=== PATIENT | male | born 1975 | race Hispanic/Latino ===

== ENCOUNTER 2018-02-23 18:38 | Emergency (ER) | payer OTHER ==
[~2018-02-23] VITALS: Ht 180.3 cm; Wt 84.4 kg
[2018-02-23] MEDS ORDERED: SODIUM CHLORIDE 0.9% 1000ML 1,000 ML IV STA (18:59)
[2018-02-23 19:16] LABS: BASOPHILS % 0.3 % (0.0-1.0); EOSINOPHILS # (AUTO) 0.1 (0.0-0.4); EOSINOPHILS % 0.7 % (0.0-6.0); HEMATOCRIT 41.8 % (38.2-49.6); HEMOGLOBIN 14.7 g/dL (14.0-18.0); MEAN CORPUSCULAR HEMOGLOBIN 29.9 pg (28-32); MEAN CORPUSCULAR HGB CONC 35.2 g/dL (31-35); MEAN CORPUSCULAR VOLUME 85.1 fL (81-99); MONOCYTES # (AUTO) 0.3 (0.2-0.8); MONOCYTES % 3.8 % (4.4-11.3); NEUTROPHILS # (AUTO) 5.8 (2.1-6.9); NEUTROPHILS % 80.9 % (38.7-80.0); PLATELET COUNT 175 x10e3/uL (140-360); RED BLOOD COUNT 4.91 x10e6/uL (4.3-5.7); RED CELL DISTRIBUTION WIDTH 13.1 % (11.7-14.4)
[2018-02-23 19:17] LABS: COLOR,URINE YELLOW (YELLOW); KETONES,URINE NEGATIVE (NEGATIVE); LEUKOCYTE ESTERASE ,URINE NEGATIVE (NEGATIVE); NITRITE,URINE NEGATIVE (NEGATIVE); PROTEIN,URINE DIPSTICK NEGATIVE (NEGATIVE)
[2018-02-23 19:18] LABS: BILIRUBIN,URINE NEGATIVE (NEGATIVE); CLARITY,URINE SL CLOUDY (CLEAR); URINE UROBILINOGEN 0.2 mg/dL (0.2 - 1)
[2018-02-23 19:29] LABS: BACTERIA,URINE FEW /HPF; EPITHELIAL CELLS,URINE MODERATE /LPF; WBC,URINE (MAN) 0-5 /HPF (0-5)
[2018-02-23 19:36] LABS: ALANINE AMINOTRANSFERASE 35 IU/L (0-55); ALBUMIN/GLOBULIN RATIO 1.1 (0.8-2.0); ALKALINE PHOSPHATASE 95 IU/L (40-150); AMYLASE 38 U/L (25-125); ANION GAP 14.2 mmol/L (8-16); BLOOD UREA NITROGEN 13 mg/dL (7-26); BUN/CREATININE RATIO 14 (6-25); CALCIUM 9.8 mg/dL (8.4-10.2); CARBON DIOXIDE 29 mmol/L (22-29); CHLORIDE 102 mmol/L (98-107); CREATINE KINASE 204 IU/L (30-200); CREATININE, SERUM 0.93 mg/dL (0.72-1.25); EST GLOMERULAR FILTRATION RATE > 60 ML/MIN (60-); GLUCOSE 165 mg/dL (74-118); LIPASE 13 U/L (8-78); MAGNESIUM 2.3 MG/DL (1.3-2.1); POTASSIUM 4.2 mmol/L (3.5-5.1); SODIUM 141 mmol/L (136-145)
[2018-02-23 19:55] LABS: THYROID STIMULATING HORMONE 0.171 uIU/mL (0.350-4.940)
--- NOTE | 2018-02-23 20:10 | Diagnostic Imaging Report ---
EXAMINATION: CHEST SINGLE (PORTABLE) COMPARISON: None INDICATION: Dizziness and weakness, vomiting DISCUSSION: Frontal view of the chest obtained at 1923 hours. HEART AND MEDIASTINUM: The cardiomediastinal silhouette is unremarkable. LINES: None. LUNGS: The lungs are well inflated and clear. No pneumonia or pulmonary edema. PLEURA: No pleural effusion or pneumothorax. BONES AND SOFT TISSUES: No focal osseous lesion. The soft tissues are normal. IMPRESSION: No acute cardiopulmonary disease. Signed by: Dr. Pj Mathias MD on 02/23/2018 8:07 PM
--- NOTE | 2018-02-23 21:43 | Diagnostic Imaging Report ---
EXAM: CT ABDOMEN AND PELVIS without IV CONTRAST INDICATION: Hematuria, dizziness, weakness COMPARISON: None TECHNIQUE: The abdomen and pelvis were scanned using a multidetector helical scanner. Coronal and sagittal reformations were obtained. Renal stone protocol performed. IV Contrast: None Oral Contrast: None CTDIvol has been reviewed. It is below the limits set by the Radiation Protocol Committee (RPC). FINDINGS: LOWER THORAX: No consolidations LIVER: No masses BILIARY: Normal gallbladder. No ductal dilation. SPLEEN: No masses PANCREAS: No masses ADRENALS: No nodules RIGHT KIDNEY: No nephroureterolithiasis or hydronephrosis. LEFT KIDNEY: No nephroureterolithiasis or hydronephrosis. Simple cyst measuring 1.5 cm posterior lateral aspect of the left kidney interpolar region. GI TRACT: No wall thickening or obstruction. Normal appendix. VESSELS: Unremarkable PERITONEUM/RETROPERITONEUM: No free air or fluid LYMPH NODES: No lymphadenopathy REPRODUCTIVE ORGANS: Normal BLADDER: Normal SOFT TISSUES: Normal BONES: No suspicious bone lesions. IMPRESSION: Normal CT of the abdomen and pelvis. No nephroureterolithiasis. Signed by: Dr. Aleyda Lerma M.D. on 02/23/2018 9:40 PM
[2018-02-23 22:29] VITALS: BP 137/88
[2018-02-23] MEDS ORDERED: ZOFRAN ODT4 MG SL (22:29)
== END 2018-02-23 22:35 | disposition home or self-care (01) ==
LOC: ER 18:38
DX: R51 Headache (principal); R53.1 Weakness; R11.2 Nausea with vomiting, unspecified; R31.9 Hematuria, unspecified; K21.9 Gastro-esophageal reflux disease without esophagitis; E07.9 Disorder of thyroid, unspecified
CPT/HCPCS: 36415; 71045; 74176; 80053; 81001; 82150; 82550; 82553; 83605; 83690; 83735; 83880; 84443; 84484; 85025; 93005; 99284; J7030

== ENCOUNTER 2018-12-31 14:25 | Emergency (ER) | payer OTHER ==
[~2018-12-31] VITALS: Ht 180.3 cm; Wt 84.4 kg
[~2018-12-31 14:25] MED LIST: ZOFRAN ODT4 MG SL
--- OUTSIDE RECORDS SUMMARY | 2018-12-31 14:27 | XMS REPORT | CCD ---
Author Author Auto Generated Organization [facility] Address Unknown Phone Unavailable Care Team Providers Care Automatic Drill Operator Name Role Phone Yonis Kirkpatrick RP Results IMMUNOLOGY Most recent to oldest [Reference Range]: 1 Quantiferon - TB Gold [NEGATIVE] NEGATIVE 1 *NA* (06/19/2013 08:25:00) NIL 0.10 IU/mL *NA* (06/19/2013 08:25:00) Mitogen - NIL 7.85 IU/mL *NA* (06/19/2013 08:25:00) TB - NIL 0.08 IU/mL 2 *NA* (06/19/2013 08:25:00) 1Result Comment: Negative test result. M. tuberculosis complex infection unlikely. 2Result Comment: The Nil tube value is used to determine if the patient has a preexisting immune response which could cause a false-positive reading on the test. In order for a test to be valid, the Nil tube must have a value of less than or equal to 8.0 IU/mL. The mitogen control tube is used to assure the patient has a healthy immune status and also serves as a control for correct blood handling and incubation. It is used to detect false-negative readings. The mitogen tube must have a gamma interferon value of greater than or equal to 0.5 IU/mL higher than the value of the Nil tube. The TB antigen tube is coated with the M. tuberculosis specific antigens. For a test to be considered positive, the TB antigen tube value minus the Nil tube value must be greater than or equal to 0.35 IU/mL. For additional information, please refer to http://education.[employer]/faq/QFT (This link is being provided for informational/ educational purposes only.) Test Performed at: [facility] [address] [address] MARINA MILAN M.D.
--- OUTSIDE RECORDS SUMMARY | 2018-12-31 14:27 | XMS REPORT | CCD ---
Author Author Auto Generated Organization [facility] Address Unknown Phone Unavailable Care Team Providers Care Kitchen Help Handyman Name Role Phone Yonis Kirkpatrick RP Results [...] IU/mL. For additional information, please refer to http://education.GigPark/faq/QFT (This link is being provided for informational/ educational purposes only.) Test Performed at: [facility] [address] [address] MARINA MILAN M.D.
--- OUTSIDE RECORDS SUMMARY | 2018-12-31 14:27 | XMS REPORT | CCD ---
Author Author Auto Generated Organization [facility] Address Unknown Phone Unavailable Care Team Providers Care Entry Level Installation Technician Name Role Phone Yonis Kirkpatrick RP Results [...] IU/mL. For additional information, please refer to http://education.[employer]/faq/QFT (This link is being provided for informational/ educational purposes only.) Test Performed at: [facility] [address] [address] MARINA MILAN M.D.
--- OUTSIDE RECORDS SUMMARY | 2018-12-31 14:27 | XMS REPORT | CCD ---
Author Author Auto Generated Organization [facility] Address Unknown Phone Unavailable Care Team Providers Care Extraction Supervisor Name Role Phone Yonis Kirkpatrick RP Results [...] IU/mL. For additional information, please refer to http://education.Polwire/faq/QFT (This link is being provided for informational/ educational purposes only.) Test Performed at: [facility] [address] [address] MARINA MILAN M.D.
--- OUTSIDE RECORDS SUMMARY | 2018-12-31 14:27 | XMS REPORT ---
Author Author [facility] Address Unknown Phone Unavailable Care Team Providers Care Lbd Teacher Name Role Phone Tiera LOPEZ Unavailable Unavailable Problems This patient has no known problems. Allergies, Adverse Reactions, Alerts This patient has no known allergies or adverse reactions. Medications This patient has no known medications. Results Test Description Test Time Test Comments Text Results Atomic Results Result Comments CT ABDOMEN/PELVIS WO 2018-02-23 21:36:00 [place] [address] Patient Name: ISABELLA SORIA MR #: [id number] : 1975 Age/Sex: 43/M Req #: [id number] Adm Physician: Ordered by: WENDY VALDOVINOS WORLD HISTORY TEACHER Report #: [id number] Location: ER Room/Bed: Procedure: [id number] CT/CT ABDOMEN/PELVIS WO Exam Date: 02/23/18 Exam Time: 2121 REPORT STATUS: Signed ADDENDUM #1 Dose modulation, iterative reconstruction, and/or weight based adjustment of the mA/kV was utilized to reduce the radiation dose to as low as reasonably achievable. Signed by: Dr. Caleb Lerma M.D. on 04/18/2018 4:53 AM ORIGINAL REPORT EXAM: CT ABDOMEN AND PELVIS without IV CONTRAST INDICATION: Hematuria, dizziness, weakness COMPARISON: None TECHNIQUE: The abdomen and pelvis were scanned using a multidetector helical scanner. Coronal and sagittal reformations were obtained. Renal stone protocol performed. IV Contrast: None Oral Contrast: None CTDIvol has been reviewed. It is below the limits set by the Radiation Protocol Committee (RPC). FINDINGS: LOWER THORAX: No consolidations LIVER: No masses BILIARY: Normal gallbladder. No ductal dilation. SPLEEN: No masses PANCREAS: No masses ADRENALS: No nodules RIGHT KIDNEY: No nephroureterolithiasis or hydronephrosis. LEFT KIDNEY: No nephroureterol ithiasis or hydronephrosis. Simple cyst measuring 1.5 cm posterior lateral aspect of the left kidney interpolar region. GI TRACT: No wall thickening or obstruction. Normal appendix. VESSELS: Unremarkable PERITONEUM/RETROPERITONEUM: No free air or fluid LYMPH NODES: No lymphadenopathy REPRODUCTIVE ORGANS: Normal BLADDER: Normal SOFT TISSUES: Normal BONES: No suspicious bone lesions. IMPRESSION: Normal CT of the abdomen and pelvis. No nephroureterolithiasis. Signed by: Dr. Caleb Lerma M.D. on 02/23/2018 9:40 PM Dictated By: CALEB Orellana MD [id number] Transcribed By: ELAINE on 02/23/18 2146 COPY TO: WENDY VALDOVINOS NP CHEST SINGLE (PORTABLE) 2018-02-23 20:07:00 [place] [address] Patient Name: ISABELLA SORIA MR #: [id number] : 1975 Age/Sex: 43/M Req #: [id number] Adm Physician: Ordered by: WENDY VALDOVINOS NP Report #: [id number] Location: ER Room/Bed: Procedure: [id number] DX/CHEST SINGLE (PORTABLE) Exam Date: 02/23/18 Exam Time: 1919 REPORT STATUS: Signed EXAMINATION: CHEST SINGLE (PORTABLE) COMPARISON: None INDICATION: Dizziness and weakness, vomiting DISCUSSION: Frontal view of the chest obtained at 1923 hours. HEART AND MEDIASTINUM: The cardiomediastinal silhouette is unremarkable. LINES: None. LUNGS: The lungs are well inflated and clear. No pneumonia or pulmonary edema. PLEURA: No pleural effusion or pneumothorax. BONES AND SOFT TISSUES: No focal osseous lesion. The soft tissues are normal. IMPRESSION: No acute cardiopulmonary disease. Signed by: Dr. Pj Mathias MD on 02/23/2018 8:07 PM Dictated By: PJ MATHIAS MD 06 Transcribed By: ELAINE on 02/23/182006 COPY TO: WENDY VALDOVINOS NP
--- OUTSIDE RECORDS SUMMARY | 2018-12-31 14:27 | XMS REPORT | CCD ---
Author Author Auto Generated Organization [facility] Address Unknown Phone Unavailable Care Team Providers Care Agricultural Commodities Grader Name Role Phone Yonis Kirkpatrick RP Results [...] IU/mL. For additional information, please refer to http://education.G[employer]/faq/QFT (This link is being provided for informational/ educational purposes only.) Test Performed at: [facility] [address] [address] MARINA MILAN M.D.
--- OUTSIDE RECORDS SUMMARY | 2018-12-31 14:27 | XMS REPORT | Continuity of Care Document ---
Author Author [facility] Address Unknown Phone Unavailable Problems Problem Status Onset Date Classification Date Reported Comments Source 786.6, CHEST MASS Active 06/07/2013 [facility] Medications Medication Details Route Status Patient Instructions Ordering Provider Order Date Source Allergies, Adverse Reactions, Alerts Substance Category Reaction Severity Reaction type Status Date Reported Comments Source Immunizations Immunization Date Given Site Status Last Updated Comments Source Results Order Name Results Value Reference Range Date Interpretation Comments Source Stomach UGI (barium) Stomach UGI (barium) UPPER GI EXAM CLINICAL HISTORY: Gastritis. TECHNIQUE: Double contrast exam with barium and air. FLUOROSCOPY TIME: 10 seconds. FINDINGS: Precontrast KUB demonstrates no significant abnormality. Contrast images of the upper GI tract show no esophageal mucosal abnormality or gastroesophageal reflux. There is a tiny sliding-type hiatal hernia. Moderate rugal fold thickening is seen in the fundus and antrum of the stomach, consistent with the provided clinical history of gastritis. There is no evidence of peptic ulcer disease. Opacified small bowel is unremarkable. IMPRESSION: Gastric mucosal thickening consistent with the provided diagnosis of gastritis. Tiny sliding-type hiatal hernia without evidence of gastroesophageal reflux. 09/24/2013 - - Read by: Osvaldo Quesada Dictated Date/time: 09/24/13 09:40 Electronically Signed by: Osvaldo Quesada MD 09/24/13 09:42 FINAL REPORT ALYSHA Cortez Chest wo contrast CT Chest wo contrast CT CT chest without contrast. INDICATION: Chest mass. TECHNIQUE: Contiguous axial CT images of the chest without intravenous contrast. DLP 587.69. COMPARISON: Several prior chest CTs. FINDINGS: Unremarkable heart and thoracic aorta. No pathologic sized middle mediastinal adenopathy, though limited by lack of intravenous contrast. Calcified granulomas subcarinal region. Unremarkable tracheobronchial tree. No pneumothorax, lobar consolidation, or pleural effusion. Resolved lingular infiltrate. Unremarkable osseous structures. IMPRESSION: No acute process in the chest. 06/28/2013 - - Read by: Lance Marie Dictated Date/time: 06/29/13 16:51 Electronically Signed by: Lance Marie MD 06/29/13 16:56 FINAL REPORT MANUEL Cortez IMMUNOLOGY TB - NIL 0.08 [iU]/mL 06/19/2013 2Result Comment: The Nil tube value is [...] IU/mL. For additional information, please refer to http://education.Earnest/faq/QFT (This link is being provided for informational/ educational purposes only.) Test Performed at: [facility] [address] [address] MARINA MILAN M.D. [facility] Mitogen - NIL 7.85 [iU]/mL 06/19/2013 [facility] NIL 0.10 [iU]/mL 06/19/2013 [facility] Quantiferon - TB Gold NEGATIVE NEGATIVE 06/19/2013 1Result Comment: Negative test result. M. tuberculosis complex infection unlikely. [facility] Chest wo contrast CT Chest wo contrast CT CT chest without contrast: COMPARISON: 04/11/2013 TECHNIQUE: Contiguous transaxial images of the chest were performed without IV contrast from the lung apices to the diaphragms. FINDINGS: Nodular infiltrate in the lingula has essentially resolved in the interim. There is minimal residual nodular opacity in the lingula, at left lung base anteriorly. The lungs and pleural spaces are otherwise clear. The trachea and the proximal bronchi are patent. The cardiac size is normal. The evaluation of the mediastinum and hilar regions is curtailed due to lack of IV contrast but no gross mass or lymphadenopathy is evident. Calcified lymph nodes are visualized in the subcarinal region. The esophagus demonstrates normal morphology. Fatty infiltration of liver. 1.4 cm cyst midportion of left kidney laterally. IMPRESSION: Minimal residual opacity is present in the lingula. Previously noted extensive infiltrate has resolved in the interim. Evidence of old granulomatous disease. Fatty infiltration of liver. Small cyst left mid kidney, laterally. SL:13 06/19/2013 - - Read by: Mason Mendez Dictated Date/time: 06/19/13 09:20 Electronically Signed by: Mason Mendez MD 06/19/13 09:32 FINAL REPORT [facility] Vital Signs Vital Sign Value Date Comments Source Encounters Location Location Details Encounter Type Encounter Number Reason For Visit Attending Provider ADM Date DC Date Status Source [facility] Outpatient [id number] 786.6, CHEST MASS JENNIFER WALDROPJackie 06/19/2013 Active [facility] Procedures Procedure Code Date Perfomer Comments Source
--- OUTSIDE RECORDS SUMMARY | 2018-12-31 14:27 | XMS REPORT | CCD ---
Author Author Auto Generated Organization [facility] Address Unknown Phone Unavailable Care Team Providers Care Cut Off Saw Tender Metal Name Role Phone Yonis Kirkpatrick RP Results [...] IU/mL. For additional information, please refer to http://education.[employer]/faq/QFT (This link is being provided for informational/ educational purposes only.) Test Performed at: [facility] [address] [address] MARINA MILAN M.D.
[2018-12-31 15:07] LABS: EOSINOPHILS # (AUTO) 0.2 (0.0-0.4); EOSINOPHILS % 4.9 % (0.0-6.0); HEMATOCRIT 39.4 % (38.2-49.6); HEMOGLOBIN 13.6 g/dL (14.0-18.0); LYMPHOCYTES # (AUTO) 1.9 (1.0-3.2); LYMPHOCYTES % 49.6 % (18.0-39.1); MEAN CORPUSCULAR HEMOGLOBIN 29.7 pg (28-32); MEAN CORPUSCULAR HGB CONC 34.5 g/dL (31-35); MONOCYTES # (AUTO) 0.3 (0.2-0.8); MONOCYTES % 7.5 % (4.4-11.3); NEUTROPHILS # (AUTO) 1.4 (2.1-6.9); NEUTROPHILS % 36.7 % (38.7-80.0); PLATELET COUNT 141 x10e3/uL (140-360); RED BLOOD COUNT 4.58 x10e6/uL (4.3-5.7); RED CELL DISTRIBUTION WIDTH 13.1 % (11.7-14.4)
[2018-12-31 15:25] LABS: AMYLASE 35 U/L (25-125); LIPASE 14 U/L (8-78)
[2018-12-31 15:27] LABS: ALANINE AMINOTRANSFERASE 21 IU/L (0-55); ALBUMIN 4.1 g/dL (3.5-5.0); ALBUMIN/GLOBULIN RATIO 1.4 (0.8-2.0); ALKALINE PHOSPHATASE 110 IU/L (40-150); ANION GAP 12.8 mmol/L (8-16); BLOOD UREA NITROGEN 18 mg/dL (7-26); BUN/CREATININE RATIO 15 (6-25); CALCIUM 10.1 mg/dL (8.4-10.2); CARBON DIOXIDE 28 mmol/L (22-29); CHLORIDE 106 mmol/L (98-107); CREATININE, SERUM 1.18 mg/dL (0.72-1.25); EST GLOMERULAR FILTRATION RATE > 60 ML/MIN (60-); GLUCOSE 156 mg/dL (74-118); POTASSIUM 3.8 mmol/L (3.5-5.1); SODIUM 143 mmol/L (136-145)
[2018-12-31 15:44] LABS: BILIRUBIN,URINE NEGATIVE (NEGATIVE); CLARITY,URINE TURBID (CLEAR); COLOR,URINE RED (YELLOW); KETONES,URINE TRACE (NEGATIVE); LEUKOCYTE ESTERASE ,URINE NEGATIVE (NEGATIVE); NITRITE,URINE NEGATIVE (NEGATIVE); PROTEIN,URINE DIPSTICK TRACE (NEGATIVE); URINE UROBILINOGEN 0.2 mg/dL (0.2 - 1)
[2018-12-31] MEDS ORDERED: HYOSCYAMINE SULFATE 0.5 MG/ML INJ IV ONE (16:00)
[2018-12-31 16:02] LABS: EPITHELIAL CELLS,URINE FEW /LPF; RBC,URINE >50 /HPF (0-5); WBC,URINE (MAN) 0-5 /HPF (0-5)
[2018-12-31] MEDS ORDERED: DIATRIZOATE MEGL/DIATRIZOA SOD 30 ML BTL PO ONE (16:07)
[2018-12-31] MEDS ORDERED: SODIUM CHLORIDE 0.9% 50ML 50 ML ONE (17:34)
[2018-12-31] MEDS ORDERED: IOPAMIDOL 370 MG/ML 200 ML INFUS..BTL INJ ONE (17:35)
--- NOTE | 2018-12-31 17:39 | Diagnostic Imaging Report ---
CT Abdomen And Pelvis with Intravenous Contrast INDICATION: Left lower quadrant pain ^left lower abd pain, rule out diverticulitis ^20181231 ^1720 TECHNIQUE: Thin collimation axial images obtained from the diaphragm to the level of the pubic symphysis following the uneventful administration of 100 cc of low osmolar, nonionic intravenous contrast. Enteric contrast was administered. Dose reduction techniques used: Automated exposure control, adjustment of the mAs and/or kVp according to patient size, standardized low-dose protocol, and/or iterative reconstruction technique. RADIATION DOSE: Total DLP: 447.93 mGy*cm Estimated effective dose: (DLP x 0.015 x size factor) mSv CTDIvol has been reviewed. It is below the limits set by the Radiation Protocol Committee (RPC). COMPARISON: CT abdomen/pelvis 02/23/2018. ABDOMEN FINDINGS: Lung Bases: Minimal posterior atelectasis. Visualized portion of the mediastinum is normal. Liver: Steatosis. No evidence for mass. Gallbladder: Present and appears normal. No biliary ductal dilatation. Pancreas: Normal attenuation without mass or ductal dilatation. Spleen: Normal in size. No evidence of mass. Adrenal Glands: No evidence for mass. Kidneys/ureters: Right: Normal enhancement. No soft tissue mass. No hydronephrosis. The right ureter is collapsed. Left: Diminished enhancement of the parenchyma relative to the right kidney with mild perinephric inflammation. The collecting system is prominent. The proximal ureter is mildly distended. A calculus in the mid ureter measures 3 mm. There is mild periureteric inflammation. Exophytic cyst in the lateral interpolar cortex measures 18 mm and is stable. Lymph Nodes: No enlarged abdominal or retroperitoneal lymph nodes. Aorta: Normal in diameter PELVIS FINDINGS: Bowel: Stomach: Normal. Small Bowel: Normal in diameter with normal wall thickness. Large Bowel: The majority of the large bowel is collapsed. No diverticulosis or associated inflammation. Appendix: Normal appendix. Bladder: Well distended. No mural thickening or intraluminal calculus. No evidence of calculus in the visualized portion of the urethra. Bones: Stable degenerative changes of the lower lumbar spine. Soft tissues: Unremarkable. IMPRESSION: 1. 3 mm calculus in the mid left ureter with mild hydroureteronephrosis. 2. No evidence of diverticulosis coli. No evidence for bowel obstruction or inflammation. Normal appendix. 3. Steatosis. Signed by: Dr. Pj Mathias MD on 12/31/2018 5:35 PM
[2018-12-31] MEDS ORDERED: ULTRAM50 MG PO (17:54)
[2018-12-31] MEDS ORDERED: ZOFRAN4 MG SL (17:54)
[2018-12-31] MEDS ORDERED: KETOROLAC TROME10 MG PO (17:54)
[2018-12-31] MEDS ORDERED: FLOMAX0.4 MG PO (17:54)
[2018-12-31] MEDS ORDERED: KETOROLAC TROMETHAMINE 30 MG/ML VIAL IV ONE (18:00)
[2018-12-31] MEDS ORDERED: ONDANSETRON HCL INJ 2MG/ML 2ML 2 MG/ML VIAL IV ONE (18:00)
[2018-12-31 18:22] VITALS: BP 130/94
== END 2018-12-31 18:35 | disposition home or self-care (01) ==
LOC: ER 14:25
DX: R10.32 Left lower quadrant pain (principal); M54.5 Low back pain; R31.9 Hematuria, unspecified; N20.0 Calculus of kidney; N13.30 Unspecified hydronephrosis
CPT/HCPCS: 36415; 74177; 80053; 81001; 82150; 83690; 85025; 99284; J1885; J1980; J2405; Q9967

== ENCOUNTER 2023-05-31 14:29 | Outpatient (RCR) | payer OTHER ==
[~2023-05-31 14:29] MED LIST changes: +FLOMAX0.4 MG PO; +KETOROLAC TROME10 MG PO; +ULTRAM50 MG PO; +ZOFRAN4 MG SL
== END 2023-06-21 ==
LOC: PT 14:29
PROVIDERS: ATTEND Specialist
DX: M75.31 Calcific tendinitis of right shoulder (principal); M75.111 Incomplete rotator cuff tear or rupture of right shoulder, not specified as traumatic

== ENCOUNTER 2023-06-22 12:19 | Outpatient (RCR) | payer OTHER | END 2023-07-21 | LOC: PT 12:19 | PROVIDERS: ATTEND Specialist | DX: M75.31 Calcific tendinitis of right shoulder (principal); M75.111 Incomplete rotator cuff tear or rupture of right shoulder, not specified as traumatic ==

== ENCOUNTER 2023-12-13 04:34 | Emergency (ER) | payer OTHER ==
[~2023-12-13] VITALS: Ht 180.3 cm; Wt 84.4 kg
[2023-12-13] MEDS: ONDANSETRON HCL INJ 2MG/ML 2ML 2 MG/ML VIAL IV STA (04:54)
[2023-12-13] MEDS: KETOROLAC TROMETHAMINE 30 MG/ML VIAL IV STA (04:55)
[2023-12-13] MEDS: SODIUM CHLORIDE 0.9% 1000ML 1,000 ML IV STA (04:55)
[2023-12-13] MEDS ORDERED: KETOROLAC TROMETHAMINE 30 MG/ML VIAL ONE ×2 (04:56→13:41)
[2023-12-13] MEDS ORDERED: ONDANSETRON HCL INJ 2MG/ML 2ML 2 MG/ML VIAL ONE ×2 (04:56→13:41)
[2023-12-13] MEDS ORDERED: SODIUM CHLORIDE 0.9% 1000ML 1,000 ML ONE (04:57)
[2023-12-13 05:11] LABS: BASOPHILS % 0.5 % (0.0-1.0); EOSINOPHILS # (AUTO) 0.1 (0.0-0.4); EOSINOPHILS % 0.9 % (0.0-6.0); HEMATOCRIT 40.5 % (38.2-49.6); HEMOGLOBIN 14.6 g/dL (14.0-18.0); LYMPHOCYTES # (AUTO) 1.3 (1.0-3.2); LYMPHOCYTES % 16.5 % (18.0-39.1); MEAN CORPUSCULAR HEMOGLOBIN 30.4 pg (28-32); MEAN CORPUSCULAR VOLUME 84.2 fL (81-99); MONOCYTES # (AUTO) 0.3 (0.2-0.8); MONOCYTES % 3.6 % (4.4-11.3); NEUTROPHILS # (AUTO) 6.3 (2.1-6.9); PLATELET COUNT 150 x10e3/uL (140-360); RED BLOOD COUNT 4.81 x10e6/uL (4.3-5.7); RED CELL DISTRIBUTION WIDTH 12.6 % (11.7-14.4); WHITE BLOOD COUNT 8.11 x10e3/uL (4.8-10.8)
[2023-12-13 05:26] LABS: ALBUMIN 4.5 g/dL (3.5-5.0); ALBUMIN/GLOBULIN RATIO 1.5 (0.8-2.0); ANION GAP 16.1 mmol/L (8-16); BILIRUBIN,TOTAL 0.7 mg/dL (0.2-1.2); CALCIUM 9.5 mg/dL (8.4-10.2); CREATININE, SERUM 1.18 mg/dL (0.72-1.25); POTASSIUM 4.1 mmol/L (3.5-5.1); TOTAL PROTEIN 7.5 g/dL (6.5-8.1)
[2023-12-13] MEDS ORDERED: ONDANSETRON ODT4 MG PO (05:58)
[2023-12-13] MEDS ORDERED: FLOMAX0.4 MG PO (05:58)
[2023-12-13] MEDS ORDERED: KETOROLAC TROME10 MG PO (05:58)
[2023-12-13 06:05] LABS: BILIRUBIN,URINE NEGATIVE (NEGATIVE); CLARITY,URINE CLEAR (CLEAR); COLOR,URINE YELLOW (YELLOW); GLUCOSE, URINE NEGATIVE (NEGATIVE); KETONES,URINE TRACE (NEGATIVE); LEUKOCYTE ESTERASE ,URINE NEGATIVE (NEGATIVE); NITRITE,URINE NEGATIVE (NEGATIVE); PH,URINE 7 (5 - 7); PROTEIN,URINE DIPSTICK NEGATIVE (NEGATIVE); URINE UROBILINOGEN 0.2 mg/dL (0.2 - 1)
[2023-12-13 06:14] VITALS: BP 136/92; PULSE 56; RESP 19; TEMP 98.1; O2SAT 98
[2023-12-13 06:14] LABS: BACTERIA,URINE FEW /HPF; RBC,URINE >50 /HPF (0-5)
[2023-12-13] MEDS ORDERED: SODIUM CHLORIDE 0.9% 1000 ML BAG ONE (13:41)
== END 2023-12-13 06:13 | disposition home or self-care (01) ==
LOC: ER 04:44
DX: N20.0 Calculus of kidney (principal); R11.2 Nausea with vomiting, unspecified; I10 Essential (primary) hypertension; E03.9 Hypothyroidism, unspecified; K21.9 Gastro-esophageal reflux disease without esophagitis
CPT/HCPCS: 36415; 74176; 80053; 81001; 83690; 85025; 99284; J1885; J2405; J7030